=== PATIENT | female | born 1985 | race African-American/Black ===

== ENCOUNTER 2017-06-23 11:46 | Emergency (ER) | payer OTHER ==
[~2017-06-23] VITALS: Ht 162.6 cm; Wt 76.2 kg
[~2017-06-23 11:46] MED LIST: IBUPROFEN600 MG ORAL; NORCO 5-325 TA1 EACH ORAL
[2017-06-23 11:57] VITALS: BP 139/87
[2017-06-23] MEDS ORDERED: IBUPROFEN600 MG ORAL (13:56)
[2017-06-23] MEDS ORDERED: NORCO 5-325 TA1 EACH ORAL (13:56)
[2017-06-23 14:09] VITALS: BP 111/74
--- NOTE | 2017-06-23 14:34 | Emergency Room Report ---
History of Present Illness General Chief Complaint: Upper Extremity Injury Source: Patient Present Illness HPI 32-year-old female presents ED complaining of left elbow pain. 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 Believes it is dislocated. Happened yesterday. Pain is 10/10, throbbing, nonradiating. States she is limited range of motion to the elbow. Denies any other injury. No other aggravating relieving factors. Denies any other associated symptoms Allergies: Coded Allergies: No Known Allergies (Unverified , 10/03/13) Patient History Past Medical History: none Past Surgical History: none Pertinent Family History: none Social History: Denies: smoking, alcohol use, drug use Last Menstrual Period: 06/16/17 Now: No Immunizations: UTD Reviewed Nursing Documentation: PMH: Agreed, PSxH: Agreed Nursing Documentation-PMH Past Medical History: No Stated History Review of Systems All Other Systems: negative except mentioned in HPI Physical Exam Vital Signs Date Time Temp Pulse Resp B/P (MAP) Pulse Ox O2 Delivery O2 Flow Rate FiO2 06/23/17 11:51 98.2 78 18 139/87 97 Room Air Sp02 EP Interpretation: reviewed, normal General Appearance: no apparent distress, alert, GCS 15, non-toxic Head: normocephalic, atraumatic Eyes: bilateral eye normal inspection, bilateral eye PERRL ENT: hearing grossly normal, normal pharynx, no angioedema, normal voice Neck: full range of motion, supple/symm/no masses Respiratory: chest non-tender, lungs clear, normal breath sounds, speaking full sentences Cardiovascular #1: regular rate, rhythm, no edema Cardiovascular #2: 2+ carotid (R), 2+ carotid (L), 2+ radial (R), 2+ radial (L) , 2+ dorsalis pedis (R), 2+ dorsalis pedis (L) Gastrointestinal: normal bowel sounds, non tender, soft, non-distended, no guarding, no rebound Rectal: deferred Genitourinary: normal inspection, no CVA tenderness Musculoskeletal: decreased range of motion, tender - L elbow Neurologic: alert, oriented x3, responsive, motor strength/tone normal, sensory intact, speech normal Psychiatric: judgement/insight normal, memory normal, mood/affect normal, no suicidal/homicidal ideation Reflexes: 3+ bicep (R), 3+ bicep (L), 3+ tricep (R), 3+ tricep (L), 3+ knee (R) , 3+ knee (L) Skin: normal color, no rash, warm/dry, well hydrated Lymphatic: no adenopathy Procedures Splinting Splinting : Consent: Verbal Pre-Made Type: sling Pre-Proc Neuro Vasc Exam: normal Post-Proc Neuro Vasc Exam: normal Patient Tolerated: Well Complications: None Medical Decision Making Diagnostic Impression: Primary Impression: Elbow injury Qualified Codes: S59.902A - Unspecified injury of left elbow, initial encounter ER Course Hospital Course 32-year-old female presents ED complaining of L elbow pain Differential diagnoses include: Fracture, dislocation, sprain, contusion Clinical course Patient placed on stretcher. After initial history and physical, I ordered pain medications and Xrays of L elbow Xrays prelim read shows no acute fracture/dislocation. placed in sling Diagnosis - elbow injury Stable and discharged to home with prescription for Motrin, [place]. apply ice, keep elevated. weight bear as tolerated. Followup with PMD. Return to ED if symptoms recur or worsen Other X-Ray Diagnostic Results Other X-Ray Diagnostic Results : X-Ray ordered: L elbow # of Views/Limited Vs Complete: 3 View Indication: Pain EP Interpretation: Yes Interpretation: no dislocation, no soft tissue swelling, no fractures Impression: No acute disease Electronically Signed by: Electronically signed by Ezekiel Lomax MD Last Vital Signs Date Time Temp Pulse Resp B/P (MAP) Pulse Ox O2 Delivery O2 Flow Rate FiO2 06/23/17 14:09 98.2 74 16 111/74 99 Room Air Status: improved Disposition: HOME, SELF-CARE Condition: Stable Scripts Hydrocodone Bit/Acetaminophen 5-325* (NORCO 5-325*) 1 Each Tablet 1 TAB ORAL Q6H Y for For Pain, #10 TAB 0 Refills Prov: EZEKIEL LOMAX M.D. 06/23/17 Ibuprofen* (MOTRIN*) 600 Mg Tablet 600 MG ORAL Q8H Y for For Pain, #30 TAB 0 Refills Prov: EZEKIEL LOMAX M.D. 06/23/17 Departure Forms: Return to Work Return to Work Date: Jun 26, 2017 Work Restrictions: No Heavy Lifting Patient Instructions: Elbow Contusion, [id number] EZEKIEL LOMAX M.D. Jun 23, 2017 14:34
--- NOTE | 2017-06-24 09:25 | Diagnostic Imaging Report ---
Indication: Pain Technique: XRAY Elbow Min 3v L Comparison: None Findings: There is no acute fracture or dislocation. No elbow joint effusion is identified. No focal soft tissue abnormality is appreciated. No radiopaque foreign body seen. Impression: No acute fracture or dislocation. No elbow joint effusion. This corresponds with the [facility] preliminary report.
== END 2017-06-23 14:11 | disposition home or self-care (01) ==
LOC: EMR 13:11
DX: S59.902A Unspecified injury of left elbow, initial encounter (principal); X50.9XXA Other and unspecified overexertion or strenuous movements or postures, initial encounter; Y92.39 Other specified sports and athletic area as the place of occurrence of the external cause; Y99.0 Civilian activity done for income or pay
CPT/HCPCS: 99284

== ENCOUNTER 2017-08-03 11:40 | Emergency (ER) | payer OTHER ==
[~2017-08-03] VITALS: Ht 162.6 cm; Wt 72.6 kg
[2017-08-03] MEDS ORDERED: NKM (11:51)
[2017-08-03 12:00] VITALS: BP 133/88
[2017-08-03] MEDS ORDERED: KEFLEX500 MG ORAL (12:08)
[2017-08-03] MEDS ORDERED: DOXYCYCLINE MO100 MG ORAL (12:08)
--- NOTE | 2017-08-03 12:17 | Emergency Room Report ---
History of Present Illness General Chief Complaint: Skin Rash/Abscess Source: Patient Present Illness HPI 32-year-old female presenting with left leg bug bites. Patient states that she was supposedly 2 days ago, started scratching. Became more red. Now today is draining fluid. No fever no chills Allergies: Coded Allergies: No Known Allergies (Unverified , 10/03/13) Patient History Past Medical History: see triage record Past Surgical History: none Pertinent Family History: none Last Menstrual Period: 07/13/2017 Now: No Reviewed Nursing Documentation: PMH: Agreed, PSxH: Agreed Nursing Documentation-PMH Past Medical History: No Stated History Review of Systems All Other Systems: negative except mentioned in HPI Physical Exam Vital Signs Date Time Temp Pulse Resp B/P (MAP) Pulse Ox O2 Delivery O2 Flow Rate FiO2 08/03/17 11:46 98.5 62 16 131/91 98 Room Air 98.4 Sp02 EP Interpretation: reviewed, normal General Appearance: normal inspection, well appearing, no apparent distress, alert, GCS 15, non-toxic Head: normocephalic, atraumatic Eyes: bilateral eye normal inspection, bilateral eye PERRL, bilateral eye EOMI ENT: normal ENT inspection, normal pharynx, normal voice, moist mucus membranes Neck: normal inspection, full range of motion, supple Respiratory: normal inspection, lungs clear, normal breath sounds, no respiratory distress, no retraction, no wheezing, speaking full sentences, chest symmetrical Cardiovascular #1: normal inspection, regular rate, rhythm, no edema, normal capillary refill Cardiovascular #2: 2+ radial (R), 2+ radial (L) Gastrointestinal: normal inspection, non tender, soft, non-distended, no guarding Musculoskeletal: other - Left lower leg with 2 bug bites training serous fluid , surrounding erythema, about 5 x 5 cm and left calf. Neurologic: normal inspection, alert, oriented x3, responsive, motor strength/ tone normal, sensory intact, normal gait, speech normal Psychiatric: normal inspection, judgement/insight normal, memory normal Skin: normal inspection, normal color, no rash, warm/dry, well hydrated, normal turgor Medical Decision Making Diagnostic Impression: Primary Impression: Bug bite with infection ER Course 32-year-old female with redness/swelling / insect bite DDX: Infected bug bite/Cellulitis No crepitus / pain out of proportion / rapid spreading for concern for nec fasc Plan: Antibiotics at home anticipate discharge as patient appears well ER course: Remains nontoxic appearing. There has been no rapid spread of redness/swelling. Disposition: Patient is to be discharged to home on PO antibiotics. Strict precautions discussed with patients on when to return to the ED including fevers, chills, rapid spread of rash, persistent rash, extreme pain to extremity, which may indicate severe illness. Patient verbalizes understanding. Patient is instructed to follow up with primary care doctor OR come back to the ED in 48 hours for wound check. Patient agrees with plan. Please note that this Emergency Department Report was dictated using [employer] development [employer] technology software, occasionally this can lead to erroneous entry secondary to interpretation by the dictation equipment. Last Vital Signs Date Time Temp Pulse Resp B/P (MAP) Pulse Ox O2 Delivery O2 Flow Rate FiO2 08/03/17 12:00 98.2 71 16 133/88 97 Room Air 98.2 Disposition: HOME, SELF-CARE Condition: Improved Scripts Doxycycline Monohydrate* (DOXYCYCLINE MONOHYDRATE*) 100 Mg Capsule 100 MG ORAL Q12H for 7 Days, #14 CAP 0 Refills Prov: Conchis Matos M.D. 08/03/17 Cephalexin* (KEFLEX*) 500 Mg Capsule 500 MG ORAL Q6H, #28 CAP 0 Refills Prov: Conchis Matos M.D. 08/03/17 Patient Instructions: Cellulitis, [id number], Insect Bite, [id number] Conchis Matos M.D. Aug 03, 2017 12:17
[2017-08-03 12:19] VITALS: BP 133/88
== END 2017-08-03 12:19 | disposition home or self-care (01) ==
LOC: EMR 11:55
DX: S80.862A Insect bite (nonvenomous), left lower leg, initial encounter (principal); L08.9 Local infection of the skin and subcutaneous tissue, unspecified; W57.XXXA Bitten or stung by nonvenomous insect and other nonvenomous arthropods, initial encounter; Y92.9 Unspecified place or not applicable
CPT/HCPCS: 99284